=== PATIENT | male | born 1970 | race Caucasian/White ===

== ENCOUNTER 2019-11-03 02:15 | Emergency (ER) | payer MEDICAID ==
[~2019-11-03] VITALS: Ht 172.7 cm; Wt 81.6 kg
[2019-11-03 02:25] VITALS: BP_SYST 137
--- NOTE | 2019-11-03 02:33 | NUR ---
Pt presents with calm yet flat affect stating that he wants to kill himself. Pt denies HI, no A/V hallucinations. Pt has a bottle of Trazodone and states that his plan was to take the entire bottle. Pt also states that while in [place] yesterday, he had thoughts of jumping in front of the [employer]. Pt states that he has been depressed for the past several days r/t being homeless, his family being in [place], and losing his job. Pt states that he used to take medications for depression but stopped 1.5 years ago. He recently got Medical and saw a Psychiatrist who Rx Trazodone, Gabapentin, and Flomax. Pt verbalizes several attempts at suicide with last attempt 3 years ago with plan to swallow pills with a large bottle of ETOH. Pt has no support system, states that he has no where to stay, his mother is in [facility], Daughter lives with his mom. He came to [place] for a job, but job didn't work out. He states that he spent all of his money and has been since sleeping outside.
--- NOTE | 2019-11-03 02:33 | NUR ---
Patient placed on suicide precautions. Patient placed in room within close proximity to nurses' station for closer observation and monitoring. All clothing removed, placed in hospital gown. Metal detector wand used to further screen patient of any potential hazardous belongings. All belongings inventoried, placed in bags and removed from room. Cabinets locked. BP and pulse oximeter cords, and ekg monitor leads removed.
--- NOTE | 2019-11-03 02:33 | NUR ---
Patient to ER bed 5 to gown for evaluation. Side rails up.
--- NOTE | 2019-11-03 02:40 | NUR ---
RN at bedside for 1:1 observation.
--- NOTE | 2019-11-03 02:54 | NUR ---
Dr. Ruffin at bedside.
--- NOTE | 2019-11-03 03:30 | NUR ---
Pt alert, calm, flat affect, cooperative, and continues to verbalize SI. Denies c/o pain or discomfort, no needs verbalized at this time. RN at bedside for 1:1 observation.
--- NOTE | 2019-11-03 04:00 | NUR ---
Pt resting quietly, even and non-labored respirations. NAD.
--- NOTE | 2019-11-03 04:25 | NUR ---
Blood drawn from RAC using butter fly needle. Pt tolerated well, dsg applied to site. Urine sample collected. All specimens sent to lab.
[2019-11-03 04:47] LABS: BASOPHILS # (AUTO) 0.3 K/uL (0.0-0.2); BASOPHILS % (AUTO) 2.2 % (0.0-2.0); EOSINOPHILS % (AUTO) 0.3 % (0.0-4.0); HEMATOCRIT 50.5 % (36-54); HEMOGLOBIN 17.3 g/dL (14.0-18.0); LYMPHOCYTES # (AUTO) 1.1 K/uL (1.0-5.5); LYMPHOCYTES % (AUTO) 9.1 % (20.5-51.5); MEAN CORPUSCULAR HEMOGLOBIN 32 pg (27-31); MEAN CORPUSCULAR HGB CONC 34 % (32-36); MEAN CORPUSCULAR VOLUME 94 fL (79.0-98.0); MONOCYTES # (AUTO) 0.5 K/uL (0.0-1.0); MONOCYTES % (AUTO) 4.2 % (1.7-9.3); NEUTROPHILS # (AUTO) 10.7 K/uL (1.8-7.7); NEUTROPHILS % (AUTO) 84.2 % (40.0-70.0); PLATELET COUNT (AUTO) 254 K/uL (130-430); RED CELL DISTRIBUTION WIDTH 14.7 % (9.0-15.0); WHITE BLOOD COUNT (AUTO) 12.7 K/uL (4.8-10.8)
[2019-11-03 04:56] LABS: BARBITURATE, URINE NEGATIVE (NEG <=200); BENZODIAZEPINE, URINE NEGATIVE (NEG <=150); CANNABINOID, URINE NEGATIVE (NEG <=50); COCAINE, URINE NEGATIVE (NEG <=150); METHAMPHETAMINES SCREEN,URINE NEGATIVE (NEG <=500); OPIATE, URINE NEGATIVE (NEG <=100); PHENCYCLIDINE SCREEN,URINE NEGATIVE (NEG <=25); UR TRICYCLIC ANTIDEPRESSANTS NEGATIVE (NEG <=300); URINE AMPHETAMINE NEGATIVE (NEG <=500); URINE METHADONE NEGATIVE (NEG <=200); URINE OXYCODONE SCREEN NEGATIVE (NEG <=100); URINE PROPOXYPHENE SCREEN NEGATIVE (NEG <=300)
[2019-11-03 04:58] LABS: ANION GAP 12 (5-15); CALCIUM 8.6 mg/dL (8.4-11.0); CHLORIDE 99 mmol/L (98-107); GLUCOSE 94 mg/dL (70-99); POTASSIUM 4.1 mmol/L (3.5-5.1); SODIUM SERUM 139 mmol/L (136-145); UREA NITROGEN, BLOOD 15 mg/dL (8-21)
--- NOTE | 2019-11-03 05:00 | NUR ---
Pt resting calmly, even and non-labored respirations, NAD. RN at bedside for 1:1 observation.
[2019-11-03 05:04] LABS: ALANINE AMINOTRANSFERASE 60 U/L (12-78); ALBUMIN 4.2 g/dL (3.4-4.8); ALCOHOL, BLOOD 4 mg/dL (<10); ASPARTATE AMINOTRANSFERASE 34 U/L (10-37); GFR AFRICAN AMERICAN 101 mL/min (>90); TOTAL BILIRUBIN 1.3 mg/dL (0.0-1.0)
[2019-11-03 05:45] LABS: ACETAMINOPHEN < 1 ug/mL (1-30)
--- NOTE | 2019-11-03 06:19 | NUR ---
Pt resting calmly, even and non-labored respirations, NAD. Sitter at bedside. Pt report given to BOB Islas.
--- NOTE | 2019-11-03 07:00 | NUR ---
received report from Erick ROJAS
--- NOTE | 2019-11-03 07:11 | NUR ---
security at bedside wanding patient.
[2019-11-03] MEDS ORDERED: LORazepam 1 MG TABLET PO ONE (07:30)
--- NOTE | 2019-11-03 07:42 | NUR ---
safety breakfast tray provided at bedside.
--- NOTE | 2019-11-03 08:00 | NUR ---
Patient is eating breakfast.
--- NOTE | 2019-11-03 09:00 | NUR ---
Patient is sleeping in bed. No signs or symptoms of distress noted.
--- NOTE | 2019-11-03 10:00 | NUR ---
Patient is sleeping in bed. No signs or symptoms of distress noted.
--- NOTE | 2019-11-03 11:00 | NUR ---
Patient is sleeping in bed. No signs or symptoms of distress noted.
--- NOTE | 2019-11-03 11:12 | NUR ---
PET team is at bedside speaking to pt.
--- NOTE | 2019-11-03 11:48 | NUR ---
safety lunch tray provided at bedside.
--- NOTE | 2019-11-03 12:00 | NUR ---
Patient eating lunch.
--- NOTE | 2019-11-03 13:00 | NUR ---
Patient is sleeping in bed. No signs or symptoms of distress noted.
--- NOTE | 2019-11-03 13:08 | NUR ---
Faxed over paperwork for placement to following facilities: [facility]. -faxed placement paperwork to [facility] for assistance of finding placement.
[2019-11-03] MEDS ORDERED: ACETAMINOPHEN 325 MG TABLET PO ONE (14:00)
--- NOTE | 2019-11-03 14:00 | NUR ---
Patient is sleeping in bed.
--- NOTE | 2019-11-03 15:00 | NUR ---
Patient resting in bed.
--- NOTE | 2019-11-03 16:00 | NUR ---
Patient resting in bed.
--- NOTE | 2019-11-03 17:00 | NUR ---
Patient is sleeping in bed.
--- NOTE | 2019-11-03 18:00 | NUR ---
Patient is resting in bed.
--- NOTE | 2019-11-03 18:07 | NUR ---
safety dinner tray provided at bedside.
--- NOTE | 2019-11-03 19:13 | NUR ---
Report given to BOB Horton for continuation of care.
--- NOTE | 2019-11-03 20:45 | NUR ---
Pt Resting in ED bed comfortably, Sleeping.
--- NOTE | 2019-11-03 23:00 | NUR ---
Pt resting in ED bed. No distress noted. Pt breathing with adequate tidal volume and good chest symmetry
--- NOTE | 2019-11-04 01:15 | NUR ---
Pt resting in ED bed. No distress noted.
--- NOTE | 2019-11-04 02:45 | NUR ---
Patient ambulted to restroom with steady gait.
--- NOTE | 2019-11-04 02:55 | NUR ---
Patient returned to bed with steady gait. Pt was given juice.
--- NOTE | 2019-11-04 03:06 | NUR ---
Patient is resting comfortably in bed. No acute distress, will continue to monitor.
--- NOTE | 2019-11-04 05:02 | NUR ---
Pt resting in ED bed comfortably. No distress noted.
--- NOTE | 2019-11-04 05:40 | NUR ---
Pt's packet faxed to the following [facility] facilities for [facility]: [facility] Awaiting reply regarding placement.
--- NOTE | 2019-11-04 06:30 | NUR ---
Pt resting in ED bed. No acute distress noted. respiratory rate adequate, tidal volume, normal rate and effort.
--- NOTE | 2019-11-04 07:15 | NUR ---
Report Given to BOB Galvan. All Care endorsed.
--- NOTE | 2019-11-04 07:46 | NUR ---
PATIENT IS ALERT AND AWAKE; FULL HEAD TO TOE ASSESSMENT; PATIENT IS INTACT WITH NO REMARKABLE S/S; PATIENT REMAINS HOPELESS FOR THE FUTURE AND REMAINS WITH ACTIVE SUICIDAL IDEATION; ADVISED OF PLACEMENT EFFORTS; REMAINS SEDATE WITH SITTER
--- NOTE | 2019-11-04 11:03 | NUR ---
REASSESSMENT; PATIENT REMAINS SEDATE AND UNCHANGED; DISPOSITION TO [facility]
--- NOTE | 2019-11-04 13:57 | NUR ---
REASSESSMENT; PATIENT REMAINS UNCHANGED; CALL TO [facility] AND SPOKE TO DAPHNIE; 'EVALUATING CHART CURRENTLY'
--- NOTE | 2019-11-04 14:02 | NUR ---
PATIENT ACCEPTED AT [facility] CARE OF DR CHARLES; PREPARATIONS TO TRANSPORT PATIENT [facility]
[2019-11-04 14:52] VITALS: BP_SYST 139
--- NOTE | 2019-11-04 14:52 | NUR ---
[facility] TRANSPORT HERE TO TAKE PATIENT TO [facility]; BELONGINGS AND CHART INCLUDED; PATIENT REMAINS UNCHANGED
== END 2019-11-04 14:52 ==
LOC: SED 02:15
DX: F32.9 Major depressive disorder, single episode, unspecified (principal); R45.851 Suicidal ideations; Z59.0 Homelessness
CPT/HCPCS: 36415; 80053; 80307; 85025; 99285; G0480; G0481; G0482